=== PATIENT | male | born 1940 | race Caucasian/White ===

== ENCOUNTER 2016-09-02 07:53 | Emergency (ER) | payer OTHER ==
[2016-09-02 08:01] VITALS: BP 125/80
--- NOTE | 2016-09-02 08:23 | PROVIDER DOCUMENTATION ---
HPI-Rash/Wound/ReCheck - General Chief Complaint: Eye Complaint Stated Complaint: EYE COMPLAINT Time Seen by Provider: 09/02/16 08:17 Source: patient Allergies/Adverse Reactions: Allergies Allergy/AdvReac Type Severity Reaction Status Date / Time No Known Allergies Allergy Verified 04/10/16 09:57 Home Medications: Home Medication List Medication Instructions Recorded Confirmed Last Taken Type Allopurinol 300 mg DAILY 01/18/15 06/14/15 07/02/16 History Furosemide [Lasix] 40 mg DAILY 01/18/15 06/14/15 07/02/16 History Potassium Chloride E.r. [Micro-K] 16 meq DAILY 01/18/15 06/14/15 07/02/16 History Simvastatin 80 mg HS 01/18/15 06/14/15 07/02/16 History Warfarin [Coumadin] 3 mg DAILY 01/18/15 06/14/15 07/02/16 History Lisinopril/Hydrochlorothiazide 1 each PO DAILY #90 tablet 03/11/15 06/14/15 Rx [Lisinopril-Hctz 20-25 mg Tab] Metoprolol [Lopressor] 25 mg PO BID #180 tablet 03/11/15 06/14/15 07/02/16 Rx Hydrocodone/Acetaminophen [[place] 1 each PO 3-4XDAY PRN PRN #20 08/05/15 Rx 7.5-325 Tablet] tablet Acetaminophen with Codeine 1 each PO Q6H PRN PRN #20 tablet 07/02/16 Unknown Rx [Tylenol with Codeine #3 Tablet] Alprazolam [Xanax] 1 mg PO BID PRN PRN #14 tablet 07/02/16 Unknown Rx Acetaminophen with Codeine 1 each PO Q6H PRN PRN #20 tablet 09/02/16 Unknown Rx [Tylenol with Codeine #3 Tablet] Acyclovir [Zovirax] 800 mg PO 5XDAY #25 tablet 09/02/16 Unknown Rx - History of Present Illness-Dermatology Nature of Presenting Problem: irritated episcopalian rash reddened tempple nose junction no blisters eye bit red Location: reports: face Quality: reports: painful Severity: reports: mild Onset/Duration: reports: 2 days ago Timing: reports: still present, constant Context/Associated Symptoms: reports: change in skin texture Identifiable cause?: No Exposure: reports: unknown cause Locality of Occurance: Home Similar Symptoms Previously?: No Recently seen or treated by another doctor?: No Review of Systems - Adult - REVIEW OF SYSTEMS - ADULT Constitutional: reports: no symptoms reported Eyes: reports: eye pain Ears, Nose, Mouth & Throat: reports: no symptoms reported Cardiovascular: reports: no symptoms reported Respiratory: reports: no symptoms reported Gastrointestinal: reports: no symptoms reported Genitourinary: reports: no symptoms reported Musculoskeletal: reports: no symptoms reported Integumentary: reports: skin sores/ulcer Neurological: reports: no symptoms reported Endocrine: reports: no symptoms reported Hematologic/Lymphatic: reports: no symptoms reported Allergic/Immunologic: reports: no symptoms reported Past History - Adult - PAST MEDICAL HISTORY-ADULT Review of Records: reports: Nursing Assessment Review, Medications Reviewed, Social history reviewed & non-contributory. Cardiovascular: reports: CAD, CHF, HTN, hyperlipidemia, [place] Respiratory: reports: COPD Musculoskeletal: reports: chronic pain (back) Neurological: reports: CVA - PRIOR SURGERIES/PROCEDURES Surgical/Procedure History: reports: cardiac stent - IMMUNIZATION STATUS Childhood Immunizations: See Nurse Assessment Flu Vaccine: See Nurse Assessment - FAMILY HISTORY Family History: reviewed, not pertinent Physical Exam-General - PHYSICAL EXAM-ADULT Initial Vital Signs Reviewed: Yes - CONSTITUTIONAL General Appearance: no apparent distress - EYES Eyes: PERRL/EOMI, sclera injected - HEAD, EARS, NOSE, MOUTH & THROAT HENMT: normocephalic/atraumatic, moist mucous membranes - NECK Neck: supple - RESPIRATORY Respiratory: rhonchi - CARDIOVASCULAR Cardiovascular: regular rate, rhythm - GASTROINTESTINAL (ABDOMEN) Abdominal Exam: soft - LYMPHATIC Lymphatic: no adenopathy - MUSCULOSKELETAL Back Exam: normal inspection, no CVA tenderness Extremity: normal range of motion - SKIN Integumentary: normal color, normal turgor - NEUROLOGIC Neurologic: grossly normal - PSYCHIATRIC Psych/Mental Status: oriented x 3 Departure - Departure Time of Disposition Order: 08:51 DIAGNOSIS: Herpes zoster Qualifiers: Herpes zoster complications: without complications Qualified Code(s): B02.9 - Zoster without complications Disposition: HOME 01 Certified Medical Emergency: Emergent Condition: Stable Additional Instructions: ED Follow Up Instructions: You have been treated by a care provider in the Emergency Department. These instructions are being provided to you so you can have an understanding of how to care for yourself upon discharge. Upon discharge from the Emergency Department, you are responsible for making arrangements for follow-up care by a physician of your choice. Take all prescribed medications as directed. Return to the Emergency Department immediately for any new or worsening symptoms. You may call the Physician Referral phone number at [phone] to obtain a list of Physicians who are taking new patients. Prescriptions: Acetaminophen with Codeine [Tylenol with Codeine #3 Tablet] 1 each PO Q6H PRN PRN #20 tablet PRN Reason: Pain Acyclovir [Zovirax] 800 mg PO 5XDAY #25 tablet
== END 2016-09-02 09:13 | disposition home or self-care (01) ==
LOC: P.ED 07:53
DX: B02.9 Zoster without complications (principal); R21 Rash and other nonspecific skin eruption; I25.10 Atherosclerotic heart disease of native coronary artery without angina pectoris; I50.9 Heart failure, unspecified; I10 Essential (primary) hypertension; E78.5 Hyperlipidemia, unspecified; J44.9 Chronic obstructive pulmonary disease, unspecified; M54.9 Dorsalgia, unspecified; Z79.899 Other long term (current) drug therapy; G89.29 Other chronic pain; Z86.73 Personal history of transient ischemic attack (TIA), and cerebral infarction without residual deficits; Z95.5 Presence of coronary angioplasty implant and graft; Z79.01 Long term (current) use of anticoagulants
CPT/HCPCS: 99282

== ENCOUNTER 2017-01-15 00:01 | Inpatient (IN) ==
[2017-01-15] MEDS ORDERED: VITAMIN K SUBQ ONE ×2 (00:09→15:04)
--- NOTE | 2017-01-15 00:54 | PROVIDER DOCUMENTATION ---
This chart was entered by Mary Cruz Scribe, acting as scribe for Shay White MD. HPI-EENT General - General Chief Complaint: Nose Bleed Stated Complaint: NOSE BLEED Time Seen by Provider: 01/15/17 00:09 Source: patient Allergies/Adverse Reactions: Patient Allergies Allergy/AdvReac Type Severity Reaction Status Date / Time No Known Allergies Allergy Verified 01/15/17 00:14 Home Medications: Home Medication List Medication Instructions Recorded Confirmed Last Taken Type Furosemide [Lasix] 40 mg PO DAILY 01/18/15 01/15/17 01/14/17 History Potassium Chloride E.r. [Micro-K] 8 meq PO BID 01/18/15 01/15/17 01/14/17 History Simvastatin 80 mg PO HS 01/18/15 01/15/17 01/13/17 History Warfarin [Coumadin] 3 mg PO DAILY 01/18/15 01/15/17 01/14/17 History Allopurinol [Zyloprim] 100 mg PO BID 01/14/17 01/15/17 01/14/17 History Alprazolam [Xanax] 1 mg PO TID PRN PRN 01/14/17 01/15/17 01/14/17 History Carvedilol [Coreg] 12.5 mg PO BID 01/14/17 01/15/17 01/14/17 History Hydrocodone/APAP 10 mg/325 mg 1 each PO Q6H PRN PRN 01/14/17 01/15/17 01/14/17 History [[place]-10] Omeprazole [Omeprazole] 40 mg PO DAILY@0700 01/14/17 01/15/17 01/14/17 History Tiotropium [place] Inhaler 18 mcg IH DAILY 01/14/17 01/15/17 01/14/17 History [Spiriva] - History of Present Illness-EENT General Nature of Presenting Problem: 76 Y/O M presents to ER by EMS with the complain of nose bleed. pt was seen in the ER earlier this evening for same reason. pt is back in the ER after 30 to 1 hour discharge from ER. pt states that he coughed at home and started to bleed again from his R nostril. EENT Location: reports: nose (bleed) Quality of Pain: reports: none Onset/Duration: reports: just prior to arrival Timing: reports: still present - Nose Nose Problem Symptoms: nosebleed (R nostril) Review of Systems - Adult - REVIEW OF SYSTEMS - ADULT Constitutional: reports: no symptoms reported Eyes: reports: no symptoms reported Ears, Nose, Mouth & Throat: reports: other (R nostril bleed and spitting blood from mouth). denies: nose pain, mouth/dental pain Cardiovascular: reports: no symptoms reported Respiratory: reports: no symptoms reported Gastrointestinal: reports: no symptoms reported Genitourinary: reports: no symptoms reported Musculoskeletal: reports: no symptoms reported Integumentary: reports: no symptoms reported Neurological: reports: no symptoms reported Psychiatric: reports: no symptoms reported Endocrine: reports: no symptoms reported Hematologic/Lymphatic: reports: no symptoms reported Allergic/Immunologic: reports: no symptoms reported All Other Systems: Reviewed and Negative Past History - Adult - PAST MEDICAL HISTORY-ADULT Review of Records: reports: Old Records Reviewed, Nursing Assessment Review Cardiovascular: reports: CAD, CHF, HTN, hyperlipidemia, [place] Respiratory: reports: COPD Musculoskeletal: reports: chronic pain (back) Neurological: reports: CVA - PRIOR SURGERIES/PROCEDURES Surgical/Procedure History: reports: cardiac stent - IMMUNIZATION STATUS Childhood Immunizations: See Nurse Assessment Flu Vaccine: See Nurse Assessment - FAMILY HISTORY Family History: reviewed, not pertinent Physical Exam- EENT - Physical Exam EENT Initial Vital Signs Reviewed: Yes General Appearance: appears well, alert Eye Exam: bilateral eye: normal inspection, PERRL, EOMI Ear Exam: bilateral ear: auricle normal, canal normal, TM normal Nasal Exam: active bleeding (R nostril). negative: foreign body Throat Exam: normal mouth inspection, pharynx normal Neck: non-tender, full range of motion, supple Respiratory: chest non-tender, lungs clear, normal breath sounds Cardiovascular: normal peripheral pulses, regular rate, rhythm, no edema Abdominal Exam: normal bowel sounds, non tender, soft Back Exam: normal inspection, no CVA tenderness, no vertebral tenderness Extremity: non-tender, normal inspection Integumentary: normal color, normal turgor, warm/dry Neurologic: grossly normal, no motor/sensory deficits Psych/Mental Status: normal mood/affect, normal thought content, normal thought process, oriented x 3 Progress - PLAN OF CARE/RESULTS Progress/Plan/Lab Results: Vital Signs - 8 hr 08/06/17 00:02 01/15/17 00:56 Pulse Rate 83 93 H Respiratory Rate 18 21 Blood Pressure 148/95 167/113 O2 Sat by Pulse Oximetry 95 Orders Category Date Time Status Admit - [facility] Routine AdmDCTranf 01/15/17 01:03 Ordered Activity - Strict Bedrest ORDERED Care 01/15/17 01:03 Active Cardiac Monitoring DIRECTED Care 01/15/17 00:28 Active Nursing- MD Consult Request ROUTINE Care 01/15/17 01:08 Active Resuscitation Status Routine Care 01/15/17 01:03 Ordered Vital Signs Order Q 4-HR ASSESS Care 01/15/17 01:03 Active Physician/Provider Consults Routine Cons 01/15/17 01:07 Ordered NPO Diet 01/15/17 01:06 Active 0.9% Sodium Chloride Inj [Ns] 1,000 ml Med 01/15/17 01:03 Active IV 75 mls/hr Clonidine [Catapres] Med 01/15/17 01:02 Discontinued 0.2 mg PO NOW ONE Phytonadione [Vitamin K] Med 01/15/17 00:09 Discontinued 10 mg SUBQ NOW ONE Oxygen Device Stat Oth 01/15/17 01:03 Active Pulse Oximetry Stat Oth 01/15/17 00:28 Active Pulse Oximetry Stat Ot 01/15/17 01:06 Active Transfer/Admit Order [TRANSFER] Routine Transfer 01/15/17 01:06 Ordered - CONSULTS/PCP/HOSPITALIST Notification #1 *Consult/PCP/Hospitalist*: Dr. Faith Time Discussed: 00:58 Reason/Comments: discussed abt pt Consult Disposition: Admit Departure - Departure Date of Disposition Decision: 01/15/17 Time of Disposition Decision: 01:01 DIAGNOSIS: Recurrent epistaxis, Warfarin-induced coagulopathy Disposition: [facility] 02 Certified Medical Emergency: Emergent Condition: Stable - Critical Care Note This patient required my direct & personal management of CC.: Yes Attestation - Physician/ GERMAINE Attestation The physician spent face to face time with patient:: Yes Advanced Practice Provider documentation review:: Supervising physician onsite and consulted in the evaluation and care of this patient. The physician did have a face to face encounter with the patient. This chart was documented by the indicated scribe, (Mary Cruz Scribe) and accurately reflects the services I performed and decisions made by me, Shay White MD, as attested by the provider's signature.
[2017-01-15] MEDS ORDERED: CATAPRES PO ONE (01:02)
[2017-01-15] MEDS ORDERED: NS 1,000 ML IV ONE (01:03)
[2017-01-15] MEDS ORDERED: NEO SYNEPHRINE ONE (02:13)
[2017-01-15] MEDS ORDERED: ZOFRAN ONE (02:16)
[2017-01-15] MEDS ORDERED: ZOFRAN IV ONE (02:22)
[2017-01-15] MEDS ORDERED: TYLENOL PO PRN (04:12)
[2017-01-15] MEDS: NORCO-10 PO PRN ×3 (04:18→20:29)
[2017-01-15] MEDS ORDERED: KLOR-CON PO ONE (05:18)
[2017-01-15] MEDS: PRILOSEC PO SCH (06:20)
[2017-01-15 07:49] LABS: HEMATOCRIT 43.2 % (42.0-52.0); MCHC 32.4 g/dL (33-37); MCV 95.8 FL (81-99); MPV 10.7 FL (7.4-10.4); RBC 4.51 XMIL (4.7-6.1)
[2017-01-15 08:01] LABS: CALCIUM 8.5 mg/dL (8.8-10.2); POTASSIUM 3.5 mmol/L (3.5-5.1)
[2017-01-15 08:03] LABS: INR 3.03; PROTIME 34.2 Seconds (9.2-11.7)
[2017-01-15] MEDS: COREG PO SCH ×2 (08:08→20:30)
[2017-01-15] MEDS: ZYLOPRIM PO SCH ×2 (08:08→20:30)
[2017-01-15] MEDS: LASIX PO SCH (08:08)
[2017-01-15] MEDS: TYLENOL PO PRN ×2 (08:09→16:31)
[2017-01-15] MEDS: SPIRIVA INH SCH (08:25)
[2017-01-15] MEDS: MICRO-K PO SCH ×2 (09:18→20:29)
[2017-01-15] MEDS: XANAX PO PRN ×2 (09:18→20:30)
[2017-01-15] MEDS ORDERED: AFRIN NASAL SPRAY NAS ONE (09:28)
[2017-01-15] MEDS ORDERED: AYR NASAL SPRAY NAS ONE (09:57)
--- NOTE | 2017-01-15 10:38 | HISTORY AND PHYSICAL ---
PRIMARY CARE PHYSICIAN: Fawad White MD CHIEF COMPLAINT: Nose bleed. HISTORY OF PRESENT ILLNESS: The patient is a 76-year-old gentleman with past medical history of coronary artery disease, hypertension, hyperlipidemia, myocardial infarction 12 years ago, chronic back pain, CVA 1 year ago, gout who was transferred from [facility] for further management of recurrent epistaxis. HPI was difficult to obtain from the patient since he is barely able to talk secondary to having his nose packed to control the bleeding. The patient states that last night he was at his home laying in bed and he suddenly felt that he was bleeding out of his nose. His took him to the hospital. Initially he was treated with Afrin. The nose bleed stopped and he was discharged home. Thirty minutes later, he started having recurrent epistaxis just as bad as the first episode and the patient had to return to [facility]. The bleeding was controlled and Dr. Marrufo, from ENT was consulted who recommended to transfer the patient to [facility] to the CICU and he will see him tomorrow. The patient denies bleeding anywhere else besides his nose. REVIEW OF SYSTEMS: Positive for a headache, and chronic back pain, all other systems were reviewed and were found to be negative. In the Emergency Room at [place], his nose was cleansed. Right nostril was suctioned. Afrin nasal spray was given. Rapid Rhino balloon placed. ENT Dr. Marrufo was consulted. Also he was given 10 mg of vitamin K. For blood pressure control, he was given a one-time dose of clonidine and his potassium was replaced with 40 mEq. PAST MEDICAL HISTORY: 1. Coronary artery disease. 2. Hypertension. 3. Hyperlipidemia. 4. SD 12 years ago. 5. Chronic back pain. 6. CVA 1 year ago. 7. Gout. 8. Per previous records the patient has COPD. The patient denies diagnosis. 9. Per previous records CHF. The patient denies this diagnosis as well. 10. The patient has also history of melanoma. PAST SURGICAL HISTORY: Cardiac stents, melanoma, skin biopsies and resections. ALLERGIES: NKDA. HOME MEDICATIONS: 1. Warfarin 3 mg tablet oral daily. 2. Potassium chloride 8 mEq twice daily. 3. Furosemide 40 mg tablet oral daily. 4. Simvastatin 80 mg tablet oral daily. 5. Omeprazole mg capsule oral daily. 6. Cardiovascular 12.5 mg oral twice daily. 7. Spiriva 18 mcg by inhalation daily. 8. Hydrocodone acetaminophen 10/325 mg tablet every 6 hours p.r.n. pain. 9. Allopurinol 100 mg tablet oral daily. 10. Alprazolam 1 mg tablet oral 3 times daily p.r.n. anxiety. SOCIAL HISTORY: The patient stopped smoking 20 years ago. The patient denies drinking alcohol or using drugs. The patient lives at home with his . FAMILY HISTORY: The patient states that no one in his family has history of strokes, heart attacks, cancer, hypertension or diabetes. LABORATORY DATA: Which was obtained at [facility] - white blood cell count 8.7, hemoglobin 14.9, hematocrit 46, platelets 172. Sodium 140, potassium 2.8 which was repleted with 40 mEq, BUN 17, creatinine 1.5, INR 3.12. IMAGING: None. PHYSICAL EXAMINATION: VITAL SIGNS: Temperature 98.8, pulse 90, respirations 23, blood pressure 148/95, oxygen saturation 98% on 2 L nasal cannula. GENERAL: The patient e is alert and oriented x 3, in no acute distress. HEENT: Head is normocephalic, atraumatic. Eyes PERRL. Dry-brandon mucous membranes. Nose is packed with a Rapid Rhino balloon. NECK: Supple. No JVD. PULMONARY: Well ventilated bilaterally. No wheezing, rales or crackles. CARDIOVASCULAR: S1, S2. Distant heart sounds, no murmurs, rubs, or gallops. ABDOMEN: Soft, nontender, nondistended. EXTREMITIES: Plus 1 lower extremity edema bilaterally. The patient states he is at his baseline. NEUROLOGIC: Cranial nerves II through XII grossly intact. No focal deficits. PSYCHIATRIC: Normal mood and affect. ASSESSMENT AND PLAN: 1. Recurrent epistaxis. The patient currently has his nose packed with a Rapid Rhino balloon. Dr. Marrufo, from ENT was already consulted, who recommended that the patient was admitted to the CICU. The patient is currently in the intensive care unit in case he needs to be intubated, however, at the moment the patient seems fairly stable and able to protect his airway. I will continue to monitor his continuous pulse oximetry and telemetry. We will follow hemoglobin and hematocrit. Currently, his hemoglobin as mentioned is stable at 15, hematocrit 46. We will hold his Coumadin for the moment. 2. Warfarin-induced coagulopathy. As mentioned above, it will be currently held due to the recurrent epistaxis. We will monitor international normalized ratio daily. Current international normalized ratio is 3.12. 3. Coronary artery disease. The patient is stable. We will continue the patient's home medications carvedilol 2.5 mg twice daily and simvastatin. 4. Hypertension. Earlier today in [place], the patient's blood pressure was close to 170 systolic over 113 diastolic. The patient took his home medications and he was given additionally clonidine. Currently, blood pressure in 140s systolic. We will try to keep the patient's blood pressure controlled to avoid any further complications with his epistaxis. 5. Hypokalemia. Forty mEq were already replaced for a potassium of 2.8. The patient might need more. We will go ahead and given him an extra additional dose of 40 to 80 mEq and we will check a chem 8 in the morning. 6. Possible chronic obstructive pulmonary disease. The patient states he does not have chronic obstructive pulmonary disease, however, he has as his home medications Spiriva. If the patient develops shortness of breath or chest tightness, we will provide as needed DuoNeb. 7. Gastroesophageal reflux disease. We will continue the patient's home medication omeprazole. cc: Betty Faith MD
[2017-01-15 12:46] LABS: HEMATOCRIT 41.5 % (42.0-52.0); HEMOGLOBIN 13.4 g/dL (14.0-18.0)
[2017-01-15 13:00] LABS: URINE CULTURE NEEDED? NO; URINE MICRO REVIEW NEEDED? NO; URINE SOURCE CLEAN CATCH
[2017-01-15 13:05] LABS: INR 2.39; PROTIME 26.5 Seconds (9.2-11.7)
[2017-01-15 13:06] LABS: BILIRUBIN URINE NEGATIVE (NEGATIVE); BLOOD URINE MODERATE (NEGATIVE); COLOR YELLOW; GLUCOSE URINE NEGATIVE (NEGATIVE); LEUKOCYTES URINE NEGATIVE (NEGATIVE); NITRITE URINE NEGATIVE (NEGATIVE); PH URINE 5.5; PROTEIN URINE 30 mg/dL (NEGATIVE); SP GRAVITY URINE 1.015; TURBIDITY URINE CLEAR (CLEAR); UROBILINOGEN URINE NORMAL (NORMAL)
[2017-01-15 13:07] LABS: UR EPITHELIAL CELLS <10 /HPF (<10); URINE BACTERIA NEGATIVE /HPF; URINE WBC <10 /HPF (<10)
[2017-01-15] MEDS: ZOCOR PO SCH (20:30)
[2017-01-16] MEDS: NORCO-10 PO PRN ×2 (03:44→22:16)
[2017-01-16] MEDS: PRILOSEC PO SCH ×2 (05:33→06:49)
[2017-01-16 07:59] LABS: HEMATOCRIT 40.1 % (42.0-52.0); HEMOGLOBIN 12.8 g/dL (14.0-18.0); MCH 30.6 PG (27-31); MCHC 31.9 g/dL (33-37); MCV 95.9 FL (81-99); MPV 10.8 FL (7.4-10.4); RBC 4.18 XMIL (4.7-6.1)
[2017-01-16] MEDS: SPIRIVA INH SCH (08:17)
[2017-01-16 08:20] LABS: CALCIUM 8.7 mg/dL (8.8-10.2); POTASSIUM 3.8 mmol/L (3.5-5.1)
[2017-01-16 08:31] LABS: INR 1.56; PROTIME 16.8 Seconds (9.2-11.7)
[2017-01-16] MEDS: ZYLOPRIM PO SCH ×2 (08:35→21:54)
[2017-01-16] MEDS: LASIX PO SCH (08:36)
[2017-01-16] MEDS: COREG PO SCH ×2 (08:36→21:54)
[2017-01-16] MEDS: MICRO-K PO SCH (08:36)
[2017-01-16] MEDS: NS 1,000 ML IV SCH (13:37)
--- NOTE | 2017-01-16 14:05 | Diag Imaging Result Doc PS360 ---
EXAM: THORAX/ABDOMEN/PELVIS W/O CONT HISTORY: abdominal pain TECHNIQUE: CT of the chest without contrast with dose reduction (clarity.) CT urogram without contrast, with reduced dose (clarity.) COMMENT: Chest: The current study is compared without of 05/11/2014. There is atelectasis in the posterior costophrenic sulci which is slightly worse than on the previous study. Some of this may be due to fibrosis. There are no abnormal fluid collections. There is extensive coronary calcification. No evidence of significant adenopathy is present. The aorta is normal in caliber. The regional skeleton is stable in appearance. CT urogram without contrast: There is no evidence of nephrolithiasis or hydronephrosis. There is been cholecystectomy. No evidence of bowel obstruction is present. There is no evidence of appendicitis. No abnormal fluid collections are present. There is stool in the rectum. There are portions of the right lateral abdominal wall which are not included on the [id number]. Compared to 11/14/2016 considering the lack of contrast on the current study there has been no significant change. IMPRESSION: No evidence of acute disease. Electronically signed by Eulogio Dugan 01/16/2017 2:03 PM
[2017-01-16] MEDS: PROTONIX IV SCH (17:38)
[2017-01-16] MEDS: DOXYCYCLINE PO SCH (17:38)
--- NOTE | 2017-01-16 17:48 | PROGRESS NOTE ---
DATE: 01/16/2017 SUBJECTIVE: The patient states that he has been having abdominal pain. He reports that he did have a bowel movement yesterday. However, that is not documented in the chart. He has not had any further epistaxis. OBJECTIVE: Vital Signs: Temperature 97.6 degrees, blood pressure 131/83, heart rate 75, respirations 18, O2 saturations 97% on 3 L nasal cannula. General: This is a morbidly obese male, lying in bed, in no acute distress. Head: Normocephalic, atraumatic. Eyes: The patient does have redness involving the conjunctivae of the right eye with white discharge coming from the eye. Heart: S1, S2 normal. Irregularly irregular rhythm. Lungs: Equal air entry bilaterally no crackles no rales. Abdomen: Positive bowel sounds. Soft, obese, nontender, nondistended. Extremities: 2+edema. No cyanosis. No calf tenderness. Neurologic: The patient is awake and alert. LABORATORY: White blood cell count 10, hemoglobin 12, hematocrit 40, platelets 162,000. Sodium 142, potassium 3.8, chloride 100, CO2 32, BUN 28, creatinine 1.7, glucose 113. ASSESSMENT AND PLAN: 1. Epistaxis. The patient was seen by ENT yesterday. Will hold coumadin for now. 2. Coronary artery disease. Continue on Coreg and Zocor. 3. Abdominal pain. A CT of the abdomen and pelvis was done that was unremarkable. We will start the patient on IV Protonix and consult Gastroenterology. We will also start the patient on scheduled laxative therapy. 4. History of cerebrovascular accident. The patient was on Coumadin due to his stroke that occurred about a year ago. We will consult physical therapy. 5. Morbid obesity. Aware. 6. Acute kidney injury on chronic kidney disease. Will continue on IVF hydration and monitor the urine output closely. 7. History of gout. Continue on allopurinol. 8. Chronic atrial fibrillation. Rate controlled. cc: MD HAYLIE Perry
[2017-01-16] MEDS: CILOXAN OPHTH SOLN RIGHT EYE SCH ×3 (18:41→21:53)
[2017-01-16] MEDS: BACTROBAN OINTMENT TOP SCH (18:42)
--- NOTE | 2017-01-16 19:50 | ECHO REPORT ---
ORDER DATE: 01/16/2017 INTERPRETING PHYSICIAN: Dr. Keane REQUESTING PHYSICIAN: CLINICAL INDICATIONS: CHF, coronary heart disease, hypertension. This study is technically very limited. Definity had to be used to opacify the left ventricular chamber. M-Mode measurements could not be obtained. The parasternal windows are really very poor. SUMMARY OF 2-DIMENSIONAL IMAGING: The study is technically limited. The global left ventricular systolic function is probably mildly impaired in the order of 45-50%. There is impairment of the posterolateral wall of the left ventricle. The apex and septum as well as the anterior wall appear to be normal as far as contractility. The aortic valve is suboptimally visualized. Doppler pattern is negative for stenosis. The mitral valve also appears to be grossly normal. The pulmonic valve is probably within normal range. The tricuspid valve was suboptimally visualized. There is no pericardial effusion. The administration of Definity improved the resolution of the anterior wall, the apex, and to some extent the lateral wall, however, the study continued to be very limited. The patient appears to be in atrial fibrillation. Diastolic function cannot be evaluated in this case. There is a single filling wave at the level of the mitral inflow. This study should be either repeated when the patient is more stable or a different imaging modality needs to be done to assess the remaining cardiac structures. cc: MD Karly Moya MD
[2017-01-16] MEDS: ZOCOR PO SCH (21:00)
[2017-01-16] MEDS: MIRALAX PO SCH (21:54)
[2017-01-16] MEDS: XANAX PO PRN (22:16)
[2017-01-17] MEDS: CILOXAN OPHTH SOLN RIGHT EYE SCH ×6 (02:18→21:12)
[2017-01-17] MEDS: DOXYCYCLINE PO SCH ×3 (02:18→21:12)
[2017-01-17] MEDS: NS 1,000 ML IV SCH (02:24)
[2017-01-17] MEDS: PROTONIX IV SCH ×2 (05:59→16:55)
[2017-01-17 06:58] LABS: MANUAL DIFF NEEDED? NO
[2017-01-17 07:09] LABS: BASO% 0.2 % (0.0-0.8); HEMATOCRIT 38.1 % (42.0-52.0); HEMOGLOBIN 12.1 g/dL (14.0-18.0); IMM GRAN# 0.02 X1000 (0.0-0.04); IMM GRAN% 0.2 % (0.0-0.5); LYMPH# 2.51 X1000 (1.2-3.4); LYMPH% 29.3 % (20.5-51.1); MCH 30.6 PG (27-31); MCHC 31.8 g/dL (33-37); MCV 96.2 FL (81-99); MONO# 1.07 X1000 (0.11-0.59); MONO% 12.5 % (1.7-9.3); MPV 10.7 FL (7.4-10.4); NEUT% 57.8 % (42.2-75.2); PLT 141 X1000 (130-400); RBC 3.96 XMIL (4.7-6.1)
[2017-01-17 07:15] LABS: INR 1.26; PROTIME 13.4 Seconds (9.2-11.7)
--- NOTE | 2017-01-17 07:26 | Diag Imaging Result Doc PS360 ---
EXAM: CHEST-PORTABLE HISTORY: dyspnea TECHNIQUE: Erect AP portable chest at 0555 COMMENT: There is cardiomegaly. The inspiration is less optimal than on 07/02/2016, otherwise has been no significant change. IMPRESSION: Cardiomegaly. Electronically signed by Eulogio Dugan 01/17/2017 7:24 AM
--- NOTE | 2017-01-17 07:30 | EKG Report ---
Test Performed on : 01/17/2017 06:55:16 AM Test Reason : afib Blood Pressure : / mmHG Vent. Rate : 066 BPM Atrial Rate : 100 BPM P-R Int : 000 ms QRS Dur : 126 ms QT Int : 378 ms P-R-T Axes : 000 -17 164 degrees QTc Int : 396 ms Atrial fibrillation. Nonspecific intraventricular block Abnormal ECG When compared with ECG of 18-OCT-2015 15:48, Nonspecific intraventricular block has replaced Left bundle branch block Early leftward axis inferiorly T wave amplitude has decreased in far lateral leads [id number] Confirmed by Cornelius Petty DO ([id number]) on 01/21/2017 11:22:01 AM
[2017-01-17 07:51] LABS: ALBUMIN 3.2 g/dL (3.5-5.0); CALCIUM 8.6 mg/dL (8.8-10.2); POTASSIUM 3.5 mmol/L (3.5-5.1); TOTAL BILIRUBIN 2.29 mg/dL (0.20-1.00); TOTAL PROTEIN 6.3 g/dL (6.3-8.3)
[2017-01-17] MEDS: SPIRIVA INH SCH (08:05)
[2017-01-17] MEDS: BACTROBAN OINTMENT TOP SCH ×3 (09:00→21:12)
[2017-01-17] MEDS: ZYLOPRIM PO SCH ×2 (09:46→21:12)
[2017-01-17] MEDS: COREG PO SCH ×2 (09:46→21:12)
[2017-01-17] MEDS: MIRALAX PO SCH (09:46)
[2017-01-17] MEDS: DULCOLAX PR SCH (09:47)
[2017-01-17] MEDS: COLACE PO SCH ×2 (09:53→21:12)
--- NOTE | 2017-01-17 12:02 | CONSULTATION ---
DATE OF CONSULTATION: 01/17/2017 REASON FOR REFERRAL: Abdominal pain. HISTORY OF PRESENT ILLNESS: This is a 76-year-old white male who presented to [facility] with a nosebleed. He was evaluated and transferred to [facility] for further evaluation. He was seen by Dr. Marrufo from ENT. He currently has rhino balloon in place and has not had any further nosebleeds today. Patient currently denies abdominal pain. He states he has had some abdominal pain in the past. He denies constipation. States he has a bowel movement daily. I talked to the family including his and daughters, who state that he has had chronic complaints of abdominal pain for some time. He does report occasional nausea. No reported reflux or heartburn. He was started on a proton pump inhibitor about a month ago with no real improvement in his symptoms per family report. He has never had an EGD or colonoscopy. PAST MEDICAL HISTORY: Coronary artery disease, history of CVA, hypertension, hyperlipidemia, history of myocardial infarction, chronic back pain, history of gout. PAST SURGICAL HISTORY: Cardiac stent placement, leg surgery from a trauma, and history of melanoma. ALLERGIES: No known drug allergies. HOME MEDICATION: Hydrocodone/acetaminophen 10/325 one every 6 hours as needed, Lasix 40 mg daily, Coreg 12.5 mg twice daily, Xanax 1 mg 3 times a day as needed, Zyloprim 100 mg twice daily, Coumadin 3 mg daily which has been on hold due to his recent epistaxis, Spiriva 18 mcg daily, simvastatin 80 mg every night, potassium 8 mEq twice daily, omeprazole 40 mg daily. SOCIAL HISTORY: He denies tobacco or alcohol use. He is . He has 4 children. REVIEW OF SYSTEMS: Per HPI. PHYSICAL EXAMINATION: Vital Signs: Temperature 98.3 degrees, pulse 88, respirations 14, blood pressure 119/68. General: Patient is awake and alert. No acute distress. HEENT: He does have some redness to the right eye. He has his nose packed with a rhino balloon. Pulmonary: Lung sounds clear bilaterally. Cardiovascular: Regular rate and rhythm. Abdomen: Soft, obese, nontender. Extremities: With some lower extremity edema noted. Neurological: Cranial nerves 2 through 12 grossly intact. Patient is awake, alert. No acute distress. DIAGNOSTIC RESULTS/LABORATORY: Hematology: White count 8.57, hemoglobin 12.1, hematocrit 38.1, MCV 96.2, platelets 141,000. Coagulation: Protime 13.4, INR 1.26. Chemistry: Sodium 140, potassium 3.5, chloride 99, CO2 31, BUN 24, creatinine 1.6, glucose 96, calcium 8.6, total bilirubin 2.29, AST 12, ALT 6, alkaline phosphatase 59. ASSESSMENT: 1. Recurrent epistaxis. Currently bleeding has stopped. He currently has a rhino balloon in place. He has been seen by Dr. Marrufo from ENT. His Coumadin has been placed on hold. 2. Abdominal pain. This is reported as a chronic issue. Patient has never had an EGD or colonoscopy. Further workup will take place once he is stable from his nosebleed and has been off of Coumadin an appropriate time. 3. History of cerebrovascular accident. 4. Coronary artery disease with history of cardiovascular stents. PLAN: Continue symptomatic treatment. Continue supportive care. Continue proton pump inhibitor. We will continue to follow and further plans will be made as needed. I have discussed this case with Dr. Birch. Thank you for this consultation. Dictated by NEIDA Cantu for Nahid Birch MD cc: NEIDA Serrano MD [facility]
[2017-01-17] MEDS: TYLENOL PO PRN ×2 (12:03→18:13)
--- NOTE | 2017-01-17 16:29 | PROGRESS NOTE ---
DATE: 01/17/2017 SUBJECTIVE: The patient states that he feels a lot better today. He is sitting on the edge of the bed. He has not had any further epistaxis, and he states that his abdominal pain has improved. OBJECTIVE: Vital Signs: Temperature 98.4 degrees, blood pressure 110/66, heart rate 71, respirations 18, O2 saturations 94% on 2 L nasal cannula. General: This is a morbidly obese, elderly male, sitting at the edge of the bed, in no acute distress. Head: Normocephalic, atraumatic. Heart: S1, S2. Normal. Irregularly irregular rhythm. Lungs: Clear to auscultation bilaterally. No crackles. No rales. Abdomen: Positive bowel sounds. Soft, obese, nontender, nondistended. Extremities: +1 edema. No cyanosis. No calf tenderness. Neurologic: The patient is alert oriented x3. LABORATORY: White blood cell count 8.5, hemoglobin 12, hematocrit 38, platelets 141,000. Sodium 140. INR 1.2, BUN 24. Creatinine 1.6. Calcium 8.6. ASSESSMENT AND PLAN: 1. Epistaxis. Resolved. We will plan on taking out the nasal packing tomorrow as per the recommendations of the ENT. 2. Chronic atrial fibrillation. We will restart the patient's Coumadin today. 3. Morbid obesity. Aware. 4. SU on CKD. Stable. 5. Constipation. Improved. We will continue on scheduled laxative therapy. 6. History of gout. Continue on allopurinol. 7. Ischemic cardiomyopathy. Aware. 8. Coronary artery disease. Continue on Coreg and Zocor. 9. History of cerebrovascular accident. Aware. 10. Continue with physical therapy. cc: Karly Blount MD [facility]
[2017-01-17] MEDS: SODIUM CHLORIDE 0.9% INJ SCH (16:54)
[2017-01-17] MEDS: XANAX PO PRN (18:16)
[2017-01-17] MEDS: ZOCOR PO SCH (21:12)
[2017-01-17] MEDS: COUMADIN PO SCH (21:13)
[2017-01-18] MEDS: CILOXAN OPHTH SOLN RIGHT EYE SCH ×4 (00:11→12:18)
[2017-01-18] MEDS: MIRALAX PO SCH ×3 (01:38→21:24)
[2017-01-18] MEDS: PROTONIX IV SCH ×2 (06:52→17:21)
[2017-01-18 07:03] LABS: MANUAL DIFF NEEDED? NO
[2017-01-18 07:11] LABS: BASO% 0.3 % (0.0-0.8); HEMATOCRIT 37.7 % (42.0-52.0); IMM GRAN# 0.02 X1000 (0.0-0.04); IMM GRAN% 0.3 % (0.0-0.5); LYMPH# 2.43 X1000 (1.2-3.4); LYMPH% 32.2 % (20.5-51.1); MCH 30.4 PG (27-31); MCHC 31.8 g/dL (33-37); MCV 95.4 FL (81-99); MONO# 0.89 X1000 (0.11-0.59); MONO% 11.8 % (1.7-9.3); MPV 11.2 FL (7.4-10.4); NEUT% 55.4 % (42.2-75.2); PLT 152 X1000 (130-400); RBC 3.95 XMIL (4.7-6.1)
[2017-01-18 07:19] LABS: INR 1.13
[2017-01-18 07:33] LABS: ALBUMIN 3.2 g/dL (3.5-5.0); CALCIUM 8.8 mg/dL (8.8-10.2); POTASSIUM 3.6 mmol/L (3.5-5.1); TOTAL BILIRUBIN 2.04 mg/dL (0.20-1.00); TOTAL PROTEIN 6.2 g/dL (6.3-8.3)
[2017-01-18] MEDS: SPIRIVA INH SCH (07:54)
[2017-01-18] MEDS: DOXYCYCLINE PO SCH ×2 (08:55→21:24)
[2017-01-18] MEDS: TYLENOL PO PRN (08:55)
[2017-01-18] MEDS: COREG PO SCH ×2 (08:55→21:24)
[2017-01-18] MEDS: COLACE PO SCH ×2 (08:55→21:24)
[2017-01-18] MEDS: ZYLOPRIM PO SCH ×2 (08:55→21:24)
[2017-01-18] MEDS: BACTROBAN OINTMENT TOP SCH ×3 (08:56→17:22)
[2017-01-18] MEDS: DULCOLAX PR SCH (08:56)
[2017-01-18] MEDS: NORCO-10 PO PRN ×2 (09:04→19:07)
--- NOTE | 2017-01-18 14:05 | PROGRESS NOTE ---
DATE: 01/18/2017 SUBJECTIVE: Patient states he feels much better. No reported nosebleeds. The Rhino balloon has been removed. No reported abdominal pain. OBJECTIVE: Vital Signs: Temperature 98.1 degrees, pulse 68, respirations 16, blood pressure 128/78. Generally: Patient is awake and alert. He is sitting up in a chair in no acute distress. Respiratory: Lung sounds essentially clear bilaterally. Abdomen: Soft, obese, nontender .positive bowel sounds. Cardiovascular: Irregular rhythm. LABORATORY: Hematology: White count 7.55, hemoglobin 12.0, hematocrit 37.7, MCV 95.4, platelet 152,000. Coagulation: Pro time 12.0, INR 1.13. Chemistry: Sodium 142, potassium 3.6, chloride 101, CO2 31, BUN 26, creatinine 1.7 and glucose 98, total bilirubin 2.04. AST 12, ALT 6, alkaline phosphatase 58. ASSESSMENT AND PLAN: 1. Epistaxis resolved. Rhino balloon has been removed. No evidence of further bleeding. 2. Abdominal pain. He reports resolution of abdominal pain at present time. 3. Constipation. That has also improved. Recommend scheduled laxative daily. Currently patient's abdominal pain has resolved and he is feeling better. We will continue to follow while he is in the hospital and follow with him as an outpatient for further evaluation if warranted. Patient states he has seen Dr. Sweet in the past and has had endoscopies by him. He may follow up with Dr. Sweet or I have given him our office information and he will call and make an appointment if he decides to follow with Dr. Birch. We will continue to follow while he is in the hospital. Further plans will be made according to his progress. Dictated by NEIDA Cantu for Nahid Birch MD cc: NEIDA Serrano MD [facility]
[2017-01-18] MEDS: SODIUM CHLORIDE 0.9% INJ SCH (17:21)
--- NOTE | 2017-01-18 18:47 | PROGRESS NOTE ---
DATE: 01/18/2017 SUBJECTIVE: The patient is resting comfortably in bed. He states that he is feeling a lot better today. He is having regular bowel movements and is participating in physical therapy. OBJECTIVE: Vital Signs: Temperature 98 degrees, blood pressure 128/78, heart rate 68, respirations 16, O2 saturations 96% on room air. General: This is an elderly male, lying in bed, in no acute distress. Head: Normocephalic atraumatic. Heart: Irregularly irregular rhythm. Abdomen: Positive bowel sounds. Soft, obese, nontender, nondistended. Extremities: +1 edema. No cyanosis. No calf tenderness. Neurologic: The patient is alert and oriented x3. LABS: White blood cell count 7.5, hemoglobin 12, hematocrit 37, platelets 152, 000. Sodium 142, potassium 3.6, chloride 101, CO2 31, BUN 26 ,creatinine 1.7. ASSESSMENT AND PLAN: 1. Epistaxis. Resolved. The nasal balloon was removed today. We will monitor the patient closely for recurrent bleeding. 2. Chronic atrial fibrillation. The patient is rate controlled. The patient's Coumadin was restarted yesterday. 3. History of cerebrovascular accident. Continue on Zocor and warfarin. 4. SU on CKD. The creatinine is up to 1.7 off of fluids and diuretic therapy. Will continue to monitor. 5. Anxiety disorder. Continue on Xanax as needed. 6. History of gout. Continue on allopurinol. 7. Constipation. Resolved. Continue on scheduled laxative therapy. 8. Morbid obesity. Aware. 9. Chronic obstructive pulmonary disease. Continue on Spiriva. 10. Continue with physical therapy. 11. Disposition. Hopefully the patient will be ready for discharge on Monday. cc: MD HAYLIE Perry
[2017-01-18] MEDS: COUMADIN PO SCH (21:24)
[2017-01-18] MEDS: XANAX PO PRN (21:24)
[2017-01-18] MEDS: ZOCOR PO SCH (21:24)
[2017-01-19] MEDS: PROTONIX IV SCH ×2 (05:46→17:27)
[2017-01-19] MEDS: SODIUM CHLORIDE 0.9% INJ SCH (05:46)
[2017-01-19 07:06] LABS: HEMATOCRIT 36.7 % (42.0-52.0); HEMOGLOBIN 11.7 g/dL (14.0-18.0); MCH 30.6 PG (27-31); MCHC 31.9 g/dL (33-37); MCV 96.1 FL (81-99); MPV 10.7 FL (7.4-10.4); RBC 3.82 XMIL (4.7-6.1)
[2017-01-19 07:17] LABS: INR 1.12; PROTIME 11.9 Seconds (9.2-11.7)
[2017-01-19 07:25] LABS: ALBUMIN 3.2 g/dL (3.5-5.0); CALCIUM 8.4 mg/dL (8.8-10.2); POTASSIUM 3.3 mmol/L (3.5-5.1); TOTAL BILIRUBIN 1.73 mg/dL (0.20-1.00); TOTAL PROTEIN 6.2 g/dL (6.3-8.3)
[2017-01-19] MEDS ORDERED: KLOR-CON PO ONE (07:58)
[2017-01-19] MEDS: SPIRIVA INH SCH (08:42)
[2017-01-19] MEDS: NORCO-10 PO PRN ×3 (08:56→23:06)
[2017-01-19] MEDS: COLACE PO SCH ×3 (08:58→23:26)
[2017-01-19] MEDS: DULCOLAX PR SCH (08:58)
[2017-01-19] MEDS: DOXYCYCLINE PO SCH ×3 (08:58→23:26)
[2017-01-19] MEDS: ZYLOPRIM PO SCH ×3 (08:58→23:26)
[2017-01-19] MEDS: COREG PO SCH ×3 (08:58→23:27)
[2017-01-19] MEDS: BACTROBAN OINTMENT TOP SCH ×3 (08:59→17:26)
[2017-01-19] MEDS: MIRALAX PO SCH ×3 (08:59→23:26)
[2017-01-19] MEDS ORDERED: LASIX PO SCH (09:00)
--- NOTE | 2017-01-19 13:52 | Diag Imaging Result Doc PS360 ---
EXAM: US RENAL 2 (RETROPER) COMPLETE HISTORY: renal failure TECHNIQUE: COMPARISON: None. FINDINGS: The right kidney measures 11.7 x 5.9 x 4.9 cm. Normal echotexture and cortical thickness. No renal stones or hydronephrosis. No solid renal mass. The urinary bladder is moderately distended and appears normal. The left kidney measures 11.8 x 5.9 x 5.6 cm. Normal renal echotexture and cortical thickness. No renal stones or hydronephrosis. No solid renal mass. Questionable tiny cysts in the right kidney measuring only a few millimeters. IMPRESSION: Normal renal ultrasound. Electronically signed by Bud Spangler 01/19/2017 1:50 PM
[2017-01-19 16:26] LABS: URINE MICRO REVIEW NEEDED? NO; URINE SOURCE CLEAN CATCH
[2017-01-19 16:34] LABS: BILIRUBIN URINE NEGATIVE (NEGATIVE); BLOOD URINE MODERATE (NEGATIVE); COLOR YELLOW; GLUCOSE URINE NEGATIVE (NEGATIVE); LEUKOCYTES URINE NEGATIVE (NEGATIVE); NITRITE URINE NEGATIVE (NEGATIVE); PROTEIN URINE TRACE mg/dL (NEGATIVE); SP GRAVITY URINE 1.008; TURBIDITY URINE CLEAR (CLEAR); UROBILINOGEN URINE NORMAL (NORMAL)
[2017-01-19 16:35] LABS: UR EPITHELIAL CELLS <10 /HPF (<10); URINE BACTERIA NEGATIVE /HPF; URINE WBC <10 /HPF (<10)
[2017-01-19 16:40] LABS: UR CREAT RANDOM 69.4 mg/dL (14-26); UR PROT RANDOM 21.2 mg/dL
--- NOTE | 2017-01-19 16:58 | PROGRESS NOTE ---
DATE: 01/19/2017 SUBJECTIVE: The patient is resting comfortably in bed. He has no complaints. He states that he is eating well and no longer has abdominal pain and he is having bowel movements. He is now sitting up, walking with physical therapy. OBJECTIVE: Vital Signs: Temperature 98.2 degrees, blood pressure 123/78, heart rate 66, respirations 15, O2 saturation is 96% on room air. General: This is a morbidly obese, elderly male, lying in bed, in no acute distress. Head: Normocephalic, atraumatic. Eyes: The patient does have redness involving the sclera of the right eye. Heart: S1, S2 normal. Irregularly irregular rhythm. Lungs: Clear to auscultation bilaterally. No crackles. No wheezing. No rales. Abdomen: Positive bowel sounds. Soft, obese, nontender, nondistended. Extremities: There is +1 edema. No cyanosis. No calf tenderness. Neurologic: The patient is alert and oriented x3. LABS: White blood cell count 6.6, hemoglobin 11, hematocrit 36, platelets 149,000. INR 1.1. Sodium 143, potassium 3.3, chloride 102, CO2 30, BUN 25, creatinine 1.7, glucose 98, total bilirubin 1.7. ASSESSMENT AND PLAN: 1. Epistaxis. Resolved. 2. Chronic atrial fibrillation. Will increase the patient's Coumadin to 5 mg at bedtime. We will continue to monitor the INR. 3. Chronic atrial fibrillation. The patient is rate controlled. We will increase the Warfarin dosage to 5 mg at bedtime. 4. Acute kidney injury on chronic kidney disease. The patient's creatinine remains at 1.7 today. Will order urine studies. The renal ultrasound is normal. We will also consult the phlebotomy support tech for further recommendations. 5. Coronary artery disease. Stable. Continue on Coreg and Zocor. 6. Cardiomyopathy. Aware. 7. Constipation. Resolved. 8. Chronic obstructive pulmonary disease. Stable. Continue on Spiriva. 9. Anxiety disorder. Continue on Xanax as needed. 10. Continue with physical therapy. 11. Disposition. Will likely discharge the patient home tomorrow. cc: Karly Blount MD
[2017-01-19] MEDS: TYLENOL PO PRN (17:30)
[2017-01-19] MEDS: XANAX PO PRN ×2 (18:52→23:06)
[2017-01-19] MEDS: ZOCOR PO SCH ×2 (23:06→23:27)
[2017-01-19] MEDS: COUMADIN PO SCH ×2 (23:06→23:27)
[2017-01-20] MEDS: NORCO-10 PO PRN (03:11)
[2017-01-20] MEDS: XANAX PO PRN (03:11)
[2017-01-20] MEDS: PROTONIX IV SCH (06:10)
[2017-01-20 06:33] LABS: HEMOGLOBIN 11.7 g/dL (14.0-18.0); MCH 30.8 PG (27-31); MCHC 31.6 g/dL (33-37); MCV 97.4 FL (81-99); MPV 10.4 FL (7.4-10.4); RBC 3.8 XMIL (4.7-6.1)
[2017-01-20 06:36] LABS: INR 1.12; PROTIME 11.9 Seconds (9.2-11.7)
[2017-01-20 06:54] LABS: ALBUMIN 2.9 g/dL (3.5-5.0); CALCIUM 8.7 mg/dL (8.8-10.2); POTASSIUM 3.6 mmol/L (3.5-5.1)
[2017-01-20] MEDS ORDERED: NEUTRA-PHOS PO ONE (08:07)
[2017-01-20 09:09] VITALS: BP 130/76
[2017-01-20] MEDS: COREG PO SCH (10:13)
[2017-01-20] MEDS: COLACE PO SCH (10:13)
[2017-01-20] MEDS: BACTROBAN OINTMENT TOP SCH (10:13)
[2017-01-20] MEDS: ZYLOPRIM PO SCH (10:14)
[2017-01-20] MEDS: DOXYCYCLINE PO SCH (10:14)
[2017-01-20] MEDS: MIRALAX PO SCH (10:14)
[2017-01-20] MEDS: DULCOLAX PR SCH (10:14)
[2017-01-20] MEDS: SPIRIVA INH SCH (10:28)
[2017-01-20] MEDS ORDERED: PROTONIX PO SCH (21:00)
--- NOTE | 2017-01-22 00:19 | DISCHARGE SUMMARY ---
ADMISSION DATE: 01/15/2017 DISCHARGE DATE: 01/20/2017 PRIMARY CARE PHYSICIAN: Dr. White. FINAL DISCHARGE DIAGNOSES: 1. Recurrent epistaxis. 2. Chronic atrial fibrillation on Coumadin. 3. Acute kidney injury on chronic kidney disease. 4. Coronary artery disease. 5. Cardiomyopathy. 6. Constipation. 7. Chronic obstructive pulmonary disease. 8. Morbid obesity. 9. Anxiety disorder. CONSULTATIONS REQUESTED DURING THIS HOSPITAL STAY: ENT consultation with Dr. Marrufo. HOSPITAL COURSE: Mr. Morgan is a 76-year-old male with a history of multiple medical problems who was admitted with recurrent epistaxis. The patient was admitted to the hospitalist service and his Coumadin was held. The patient was seen by ENT and nasal packing was applied to the right naris. The patient was noted to have some mild renal insufficiency which improved slowly over the course of the hospitalization to patient's baseline. The patient was noted to be constipated as a result of pain medication and was started on scheduled laxative therapy. The nasal packing was eventually removed and the patient has had no further episodes of epistaxis while hospitalized. The patient's Coumadin was resumed. The patient was cleared for discharge home 01/20/2017. DISCHARGE MEDICATIONS: 1. Warfarin 3 mg p.o. daily. 2. Lasix 40 mg p.o. daily. 3. Simvastatin 80 mg p.o. at bedtime. 4. Coreg 12.5 mg p.o. twice a day. 5. Omeprazole 40 mg p.o. every morning. 6. Spiriva 18 mcg inhaled daily. 7. [place] 10/325 one tab oral every 6 hours p.r.n. for pain. 8. Allopurinol 100 mg p.o. twice a day. 9. Xanax 1 mg p.o. 3 times a day p.r.n. for anxiety. DISCHARGE DIET: Low cholesterol, low sodium diet. ACTIVITY: As tolerated. FOLLOWUP INSTRUCTIONS: The patient will need to follow up with Dr. White in 1-2 weeks. The patient will need to follow with Dr. Marrufo as scheduled by his clinic. The patient is discharged with [facility] for continued physical therapy and conditioning. cc: Karly Blount MD
== END 2017-01-20 11:24 | disposition home health service (06) ==
LOC: 4N 00:01 → P.ED 00:01 → SUATTDRO 01:55 → ICU 03:04 → 3N 16:27 → SUATTDRO 17:11
PROVIDERS: ATTEND Internal Medicine